=== PATIENT | female | born 1965 | race Caucasian/White ===

== ENCOUNTER 2022-01-24 21:55 | Emergency (ER) | payer SELFPAY ==
[2022-01-24 21:56] VITALS: BP 142/85; PULSE 100; RESP 15; TEMP 37; O2SAT 96; BMI 37.2
--- NOTE | 2022-01-24 22:14 | EDS_ITS ---
HPI History of Present Illness Chief Complaint: General Illness Narrative Narrative: 56-year-old female presenting with fever, chills, body aches, nausea and vomiting. She states she is having difficulty holding on food and fluids since . She states she just drove back from [place] and was hauling animals. She states that the person that was with her was diagnosed with influenza. No chest pain but does endorse a cough. No production of sputum. No abdominal pain. No urinary complaints. No diarrhea. PFSH PFSH Medical History Irregular heart beat Home Medications ondansetron 4 mg disintegrating tablet 4 mg PO Q8H PRN nausea and vomiting #14 tabs 01/24/22 [Rx Last Taken Unknown] Allergy/AdvReac Type Severity Reaction Status Date / Time codeine Allergy Other Verified 01/24/22 21:58 Surgical History History of appendectomy Social History Smoking Status: Never smoker ROS ROS ED Constitutional Constitutional ED: Reports chills and fever(s) Eyes Eyes: Denies change in vision or diplopia ENT ENT ED: Reports rhinorrhea Cardiovascular Cardiovascular: Denies chest pain or palpitations Respiratory/Chest Respiratory/Chest: Reports cough Gastrointestinal Gastrointestinal: Denies abdominal pain, constipation, nausea or vomiting Genitourinary Genitourinary ED: Denies dysuria or hematuria Musculoskeletal Musculoskeletal: Reports myalgias; Denies arthralgias Integumentary Denies abscess or Abrasions Neurologic Neurologic: Denies headache(s) or paresthesias Psychiatric Psychiatric: Denies anxiety or depression EXAM Physical Exam Const Vital Signs: 01/24/22 21:56 01/24/22 22:02 01/24/22 23:47 Temperature 98.6 F Temperature Source Temporal Pulse Rate 100 88 Respiratory Rate 15 22 H Respiratory Effort Non-Labored Short of Breath Blood Pressure 142/85 H 140/78 H Blood Pressure Mean 104 Pulse Ox 96 96 Oxygen Delivery Method Room Air Positive well nourished General Appearance ED: NAD; Negative for pallor HEENT Reports moist mucous membranes Negative for trauma Eyes PERRL and EOMs intact bilaterally General Eye ED: Negative for pale conjunctiva or scleral icterus Neck no lymphadenopathy Chest Wall inspection of chest normal and palpation of chest normal Resp Auscultation: Negative for rales, rhonchi or wheezes Cardio regular rate and regular rhythm GI normal to inspection, nondistended, normoactive bowel sounds Neuro oriented x3 Sensorium / Orientation: alert Motor Exam: strength 5/5 throughout Psych mental status grossly normal Skin no rashes or lesions noted General Skin Exam: Negative for jaundice or pallor MDM MDM MDM Narrative Medical decision making narrative: 56-year-old female presenting with viral symptoms. She is exposed to influenza from her friend on a trip back from [place]. Vital signs are stable she is afebrile. She is not having chest pain. Her main concern is that she is vomiting and cannot hold down food and fluids. Patient given IV fluids, Zofran. We will check basic lab work. We discussed viral testing but since she is 5 days of symptoms there is no treatment for COVID or influenza other than symptomatic control. She acknowledged understanding this. CBC shows leukopenia with lymphopenia consistent with viral syndrome. Patient requested a chest x- ray which was ordered on my interpretation shows no acute cardiopulmonary process. The radiologist are persistent degrees. Creatinine slightly elevated 1.04 patient was given a liter of IV fluids and Zofran and feels better. She will be given a prescription for Zofran. Impression: 1. Viral syndrome 2. Nausea/vomiting 3. Leukopenia 4, lymphopenia Lab Data Attestation: I reviewed the patient's lab results. Labs: Laboratory Results - last 24 hr 01/24/22 01/24/22 22:20 22:20 WBC 3.5 L RBC 4.82 Hgb 13.6 Hct 43.1 MCV 89.4 MCH 28.2 MCHC 31.6 L RDW Std Deviation 45.4 H RDW Coeff of Angel Luis 13.9 Plt Count 178 MPV 11.2 Immature Gran % (Auto) 0.300 Neut % (Auto) 47.8 Lymph % (Auto) 40.1 [place] % (Auto) 11.2 H Eos % (Auto) 0.3 Baso % (Auto) 0.3 Absolute Neuts (auto) 1.7 L Absolute Lymphs (auto) 1.40 Nucleated RBC % 0 Atypical Lymphocytes 2+ Platelet Estimate ADEQUATE RBC Morphology N CHROM Anisocytosis RARE Sodium 140 Potassium 3.8 Chloride 105 Carbon Dioxide 28.0 Anion Gap 7 BUN 15 Creatinine 1.04 H Estim Creat Clear Calc 48.78 Est GFR (MDRD) Af Amer 70 Est GFR (MDRD) Non-Af 58 L BUN/Creatinine Ratio 14.4 Glucose 106 Calcium 8.6 Radiography Diagnostic Testing: Clinical Impression(s) from Imaging Studies Chest X-Ray 01/24/22 22:58 IMPRESSION: No acute abnormal cardiopulmonary finding. Electronically Signed: Dieudonne Torre MD at 23:12 EST , Discharge Plan Triage Chief Complaint: General Illness ED Provider: Efren Vazquez Dx/Rx/DC Orders Instructions: ED Viral Syndrome (Adult) Prescriptions: New ondansetron 4 mg tablet,disintegrating 4 mg PO Q8H PRN (Reason: nausea and vomiting) Qty: 14 0RF Primary Care Provider: Care Physician,No Primary Referrals: Epifanio Johnson MD [Med Staff - [employer]] - 3-5 Days Care Physician,No Primary [Primary Care Provider] - Disposition Disposition: Home, Self Care
[2022-01-24] MEDS: Ondansetron 4 MG/2 ML Vial IV (22:27)
[2022-01-24] MEDS: Famotidine 200 MG/20 ML MDV 20 MG in 0.9% Normal Saline (Pres. free 8 ML 300 MG IV (22:27)
[2022-01-24 22:28] LABS: Absolute Neutrophil Count 1.7 X10^3/uL (2.0-7.7); Basophil# 0.01 X10^3/uL; Basophil% 0.3 % (0-1); Eosinophil# 0.01 X10^3/uL; Eosinophils% 0.3 % (0-5); Hematocrit 43.1 % (37-47); Hemoglobin 13.6 g/dL (12.0-15.0); Lymphocyte % 40.1 % (19-41); Mean Corp Hgb Conc 31.6 g/dL (32-36); Mean Corpuscular Hgb 28.2 pg (27.0-32.0); Mean Corpuscular Volume 89.4 fL (81-99); Mean Platelet Vol. 11.2 fl (6.2-12.0); Monocyte# 0.39 X10^3/uL; Monocyte% 11.2 % (0-10); NRBC Flagged by Analyzer 0 % (0-5); Neutrophil # 1.67 X10^3/uL (2.7-7.7); Neutrophil % 47.8 % (47-70); POSITIVE MORPHOLOGY YES; Platelet Count 178 K/mm3 (150-450); RBC Distribution Width CV 13.9 % (11.6-14.6); RBC Distribution Width SD 45.4 fl (35.1-43.9); Red Blood Count 4.82 M/mm3 (4.2-5.4); White Blood Count 3.5 K/mm3 (4.4-11.0)
[2022-01-24 22:29] LABS: Differential Indicated SCAN CRITERIA MET
[2022-01-24 22:50] LABS: Anion Gap 7 (5-15); BUN 15 mg/dL (7-18); BUN/Creat Ratio 14.4 RATIO (10-20); Calcium,Total 8.6 mg/dL (8.5-10.1); Chloride 105 mmol/L (98-107); Creatinine, Serum 1.04 mg/dL (0.55-1.02); EST Glomerular Filtration Rate 58 mL/min (>60); Est Glom Filt Rate - Afr Amer 70 mL/min (>60); Estimated Creatinine Clearance 48.78 ml/min; Glucose 106 mg/dL (74-106); Potassium 3.8 mmol/L (3.5-5.1); Sodium Level 140 mmol/L (136-145)
[2022-01-24 22:51] LABS: Anisocytosis RARE; Atypical Lymphocyte 2+ %; Platelet Estimate ADEQUATE (ADEQ); Red Cell Morphology N CHROM NORMAL (NORM C&C)
--- NOTE | 2022-01-24 22:58 | RAD_ITS ---
STUDY: X-RAY CHEST REASON FOR EXAM: Female, 56 years old. COUGH SOB TECHNIQUE: Portable, upright, AP chest radiograph COMPARISON: None. FINDINGS: The lungs are clear and expanded. There is no demonstrated pleural abnormality. Normal size heart. Normal mediastinum and clinton. Normal visualized pulmonary arteries. There is atherosclerotic tortuosity of the aortic arch and descending thoracic aorta. There is no demonstrated abnormality of the visualized soft tissue structures of the upper abdomen. RAD/Chest 1 View (Portable) IMPRESSION: No acute abnormal cardiopulmonary finding. Electronically Signed: Dieudonne Torre MD at 23:12 EST ,
[2022-01-24 23:47] VITALS: BP 140/78; PULSE 88; RESP 22; O2SAT 96
== END 2022-01-24 23:51 | disposition home or self-care (01) ==
PROVIDERS: Emergency Provider Student in an Organized Health Care Education/Training Program; Visit Provider Student in an Organized Health Care Education/Training Program
DX: B34.9 Viral infection, unspecified (principal); R11.2 Nausea with vomiting, unspecified; D72.810 Lymphocytopenia; Z20.828 Contact with and (suspected) exposure to other viral communicable diseases
CPT/HCPCS: 71045; 80048; 85025; 96365; 96375; 99283; J7030; J2405; J3490

== ENCOUNTER 2023-08-17 17:09 | Emergency (ER) | payer SELFPAY ==
[2023-08-17 17:10] VITALS: BP 163/88; PULSE 119; RESP 16; TEMP 36.4; O2SAT 97; BMI 40.6
--- NOTE | 2023-08-17 17:22 | NURSING ---
pt reports feeling light headed all day yest almost passing out and that unable to remember cuting finger this am. pt refusing any workup saying i hate and dont come in to see one unless am dying. i think i just need to slow down some, lauryn been on the road for awhile transporting animals
--- NOTE | 2023-08-17 17:24 | EDS_ITS ---
HPI <GIOVANNI Felix - Last Filed: 08/17/23 19:46> History of Present Illness Chief Complaint: Laceration Narrative Narrative: Patient presenting today with a laceration to her right second finger that she got this evening. 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 She is not on any blood thinners. Her tetanus is not up-to-date. PFSH <GIOVANNI Felix - Last Filed: 08/17/23 19:46> PFSH Medical History Irregular heart beat Home Medications ?Medication ?Instructions ?Recorded ?Last Taken ?Type ondansetron 4 mg disintegrating 4 mg PO Q8H PRN nausea and 01/24/22 Unknown Rx tablet vomiting #14 tabs Allergy/AdvReac Type Severity Reaction Status Date / Time codeine Allergy Other Verified 08/17/23 17:10 Surgical History History of appendectomy Social History Smoking Status: Never smoker ROS <GIOVANNI Felix - Last Filed: 08/17/23 19:46> ROS ED Constitutional Constitutional ED: Denies chills or fever(s) Cardiovascular Cardiovascular: Denies chest pain Respiratory/Chest Respiratory/Chest: Denies dyspnea Gastrointestinal Gastrointestinal: Denies abdominal pain Musculoskeletal Musculoskeletal: Denies arthralgias Integumentary Reports laceration Neurologic Neurologic: Denies paresthesias EXAM <GIOVANNI Felix - Last Filed: 08/17/23 19:46> Physical Exam Const Vital Signs: 08/17/23 17:10 08/17/23 18:21 Temperature 97.6 F L 97.8 F Temperature Source Temporal Pulse Rate 119 H 110 H Respiratory Rate 16 16 Blood Pressure 163/88 H 140/88 H Blood Pressure Mean 113 105 Pulse Ox 97 95 Positive well nourished, well developed and no apparent distress General Appearance ED: well developed HEENT Reports normocephalic and head/scalp atraumatic Mouth ED: Yes moist mucous membranes normal Eyes PERRL and EOMs intact bilaterally Neck full ROM and supple Chest Wall inspection of chest normal Resp normal respiratory effort and clear to auscultation bilaterally Cardio regular rate and regular rhythm GI soft to palpation, non-tender, non-distended and no masses Back/Spine normal ROM and normal to inspection Extremity full ROM Extremity Narrative: 0.5 cm avulsion to the tip of the right second finger with minimal active bleeding. Right radial pulse 2+, good capillary refill, sensation intact. Neuro oriented x3, CN's II-XII intact bilaterally, moves all extremities, no focal motor deficits and no sensory deficits noted Sensorium / Orientation: awake and alert Psych mental status grossly normal and thought process normal <Simón Ragsdale MD - Last Filed: 08/17/23 21:13> Physical Exam Const Vital Signs: 08/17/23 17:10 08/17/23 18:21 Temperature 97.6 F L 97.8 F Temperature Source Temporal Pulse Rate 119 H 110 H Respiratory Rate 16 16 Blood Pressure 163/88 H 140/88 H Blood Pressure Mean 113 105 Pulse Ox 97 95 MDM <GIOVANNI Felix - Last Filed: 08/17/23 19:46> [facility] Narrative Medical decision making narrative: Patient presenting with a 0.5 cm avulsion to the tip of the right second finger. There is minimal active bleeding. The avulsion was copiously irrigated with saline, Gelfoam was applied to the avulsion, hemostasis was achieved, wound was then bandaged. Tetanus was updated. Wound care instructions were discussed. Patient discharged home in stable condition. <Simón Ragsdale MD - Last Filed: 08/17/23 21:13> [facility] Treatment and Re-Evaluation Narrative: Dr. Ragsdale: I have personally performed a face to face assessment of the patient and have reviewed the NIDA Note. I performed a substantive portion of the visit including all aspects of the following. My romeo findings include: History is patient presents with avulsion laceration to the tip of her right index finger that she sustained greater than 6 hours ago when she was holding a knife. She could not get it to stop bleeding. She presents to help with hemostasis. Exam is afebrile. Vital signs noted. +0.5 cm avulsion laceration to the tip of right index finger pad/second digit Medical Decision Making: Gelfoam. Tetanus/Tdap immunization update. Heal by secondary intent. Discharge. Other additions or changes: [None] Discharge Plan Triage Chief Complaint: Laceration ED Midlevel Provider: Brittney Huffman ED Provider: Simón Ragsdale Dx/Rx/DC Orders Clinical Impression: Avulsion of finger Instructions: ED Skin Tear (Skin Avulsion) Prescriptions: No Action ondansetron 4 mg tablet,disintegrating 4 mg PO Q8H PRN (Reason: nausea and vomiting) Qty: 14 0RF Primary Care Provider: Care Physician,No Primary Referrals: Care Physician,No Primary [Primary Care Provider] - Activity Restrictions/Additional Instructions: Please return for any signs of infection. Keep area clean with soap and water. avoid soaking in any bodies of water, please keep covered if you are going to be working. Print Language: Greenlandic Disposition Disposition: Home, Self Care Discharge Date/Time: 08/17/23 18:22
[2023-08-17] MEDS: Diphth,Pertuss(Acell),Tet Vac 0.5 ML Vial IM (17:57)
[2023-08-17 18:21] VITALS: BP 140/88; PULSE 110; RESP 16; TEMP 36.6; O2SAT 95
== END 2023-08-17 18:22 | disposition home or self-care (01) ==
LOC: ED 18:08
PROVIDERS: Emergency Provider Emergency Medicine; Visit Provider Emergency Medicine
DX: S61.210A Laceration without foreign body of right index finger without damage to nail, initial encounter (principal); W26.8XXA Contact with other sharp object(s), not elsewhere classified, initial encounter; Y93.G1 Activity, food preparation and clean up; Z90.49 Acquired absence of other specified parts of digestive tract; Z23 Encounter for immunization
CPT/HCPCS: 12001; 90471; 90715; 99282